=== PATIENT | female | born 1935 | race Caucasian/White ===

== ENCOUNTER → 2023-08-05 16:19 | Outpatient (REF) | payer OTHER, SELFPAY | LOC: WDC 16:19 | PROVIDERS: ATTENDING PHYSICIAN Internal Medicine Hematology & Oncology; FAMILY PHYSICIAN Family Medicine | DX: Z12.31 Encounter for screening mammogram for malignant neoplasm of breast (principal); C50.512 Malignant neoplasm of lower-outer quadrant of left female breast | CPT/HCPCS: 77063; 77067 ==